=== PATIENT | female | born 1980 | race Caucasian/White ===

== ENCOUNTER 2020-11-26 23:05 | Emergency (ER) | payer SELFPAY ==
--- NOTE | 2020-11-26 23:44 | Event Note ---
ED Screening Note Date of service: 11/26/20 Time: 23:40 ED Screening Note: Patient is a 40-year-old female who presents with for as stated moira. Patient has history of bipolar disease has not had medications in 2 weeks. does not know the name of medications or the psychiatrist who prescribes. Patient denies SI or HI mother states patient seems to same songs all day. Patient is tolerating p.o. intake there is no fever or chills noted in triage no respiratory distress. Patient is well-groomed well-dressed however intermittently nonverbal versus repetitive phrases and singing. This initial assessment/diagnostic orders/clinical plan/treatment(s) is/are subject to change based on patients health status, clinical progression and re- assessment by fellow clinical providers in the ED. Further treatment and workup at subsequent clinical providers discretion. Patient/guardian urged not to elope from the ED as their condition may be serious if not clinically assessed and managed. Initial orders include: Psych consult, cbc, cmp, salicylate, tyelnol ,dilatin, depakote, uds, ua, hcg
[2020-11-26] MEDS ORDERED: ZIPRASIDONE MESYLATE 20 MG VIAL IM ONE (23:52)
--- NOTE | 2020-11-27 00:46 | Emergency Department Report ---
ED General Adult HPI - General Chief complaint: Psych Stated complaint: MARCELINO VELA Time Seen by Provider: 11/26/20 23:47 Source: patient Mode of arrival: Ambulatory Limitations: No Limitations - History of Present Illness Initial comments: Patient presents to the emergency department with her for psychiatric evaluation. Patient has a history of bipolar disease and has not taken her medicines in the last 3 to 4 months per her spouse. states the patient has not been sleeping at home and has been out for the least the last 1 to 2 days. He states the patient is in her manic state currently. On evaluation the patient is singing [employer] song in [place] and is very energetic. Due to the patient's joie she is not able to assist in history. -: Gradual Severity scale (0 -10): 0 Consistency: constant Improves with: none Worsens with: none Associated Symptoms: denies other symptoms Treatments Prior to Arrival: none - Related Data Allergies Allergy/AdvReac Type Severity Reaction Status Date / Time No Known Allergies Allergy Verified 02/03/19 01:23 ED Review of Systems ROS: Stated complaint: MARCELINO VELA Other details as noted in HPI Not able to completely assess due to the patient's joie Comment: Unobtainable due to pts medical conditions ED Past Medical Hx - Past Medical History Previous Medical History?: Yes Hx Psychiatric Treatment: Yes (Bipolar) - Surgical History Past Surgical History?: No - Social History Smoking Status: Never Smoker Substance Use Type: None ED Physical Exam - General Limitations: No Limitations, Language Barrier General appearance: other (Manic) - Head Head exam: Present: atraumatic, normocephalic - Eye Eye exam: Present: normal appearance, PERRL, EOMI Pupils: Present: normal accommodation - ENT ENT exam: Present: mucous membranes moist - Neck Neck exam: Present: normal inspection - Respiratory Respiratory exam: Present: normal lung sounds bilaterally, respiratory distress. Absent: wheezes, rales, rhonchi - Cardiovascular Cardiovascular Exam: Present: normal rhythm, tachycardia - GI/Abdominal GI/Abdominal exam: Present: soft, normal bowel sounds. Absent: distended, tenderness - Extremities Exam Extremities exam: Present: normal inspection - Back Exam Back exam: Present: normal inspection - Neurological Exam Neurological exam: Present: alert, CN II-XII intact. Absent: motor sensory deficit - Psychiatric Psychiatric exam: Present: anxious, manic - Skin Skin exam: Present: warm, dry, intact, normal color. Absent: rash ED Course Vital Signs 11/26/20 23:37 Temperature 97.6 F Pulse Rate 104 H Respiratory 18 Rate Blood Pressure 130/84 [Left] O2 Sat by Pulse 100 Oximetry ED Medical Decision Making - Lab Data Result diagrams: 11/27/20 00:01 Lab Results 11/27/20 11/27/20 11/27/20 Range/Units 00:01 00:01 00:01 Sodium 137 (137-145) mmol/L Potassium 3.4 L (3.6-5.0) mmol/L Chloride 102.5 (98-107) mmol/L Carbon Dioxide 22 (22-30) mmol/L Anion Gap 16 mmol/L BUN 12 (7-17) mg/dL Creatinine 0.7 (0.6-1.2) mg/dL Estimated GFR > 60 ml/min BUN/Creatinine Ratio 17 % Glucose 100 (65-100) mg/dL Calcium 9.4 (8.4-10.2) mg/dL Total Bilirubin 0.50 (0.1-1.2) mg/dL AST 16 (5-40) units/L ALT 19 (7-56) units/L Alkaline Phosphatase 64 (35-129) units/L Total Protein 7.5 (6.3-8.2) g/dL Albumin 4.8 (3.9-5) g/dL Albumin/Globulin Ratio 1.8 % Urine HCG, Qual (Negative) Acetaminophen 5.0 L (10.0-30.0) ug/mL Phenytoin 1.0 L (10.0-20.0) ug/mL Carbamazepine 2.0 L (4-12) ug/mL [place] 0.1 (0.0-1.2) mmol/L 11/27/20 Range/Units 00:29 Sodium (137-145) mmol/L Potassium (3.6-5.0) mmol/L Chloride (98-107) mmol/L Carbon Dioxide (22-30) mmol/L Anion Gap mmol/L BUN (7-17) mg/dL Creatinine (0.6-1.2) mg/dL Estimated GFR ml/min BUN/Creatinine Ratio % Glucose (65-100) mg/dL Calcium (8.4-10.2) mg/dL Total Bilirubin (0.1-1.2) mg/dL AST (5-40) units/L ALT (7-56) units/L Alkaline Phosphatase (35-129) units/L Total Protein (6.3-8.2) g/dL Albumin (3.9-5) g/dL Albumin/Globulin Ratio % Urine HCG, Qual Negative (Negative) Acetaminophen (10.0-30.0) ug/mL Phenytoin (10.0-20.0) ug/mL Carbamazepine (4-12) ug/mL [place] (0.0-1.2) mmol/L - Medical Decision Making 1013 applied Patient given Harpreet[place] Patient to be evaluated by mental health Pending placement Medically cleared Critical care attestation.: If time is entered above; I have spent that time in minutes in the direct care of this critically ill patient, excluding procedure time. ED Disposition Clinical Impression: Joie Disposition: [id number]/TX-[id number] PSY HOSP/PSY UNIT Is pt being admited?: No Does the pt Need Aspirin: No Condition: Stable Referrals: PRIMARY CARE, [Primary Care Provider] - 3-5 Days
[2020-11-27 01:05] LABS: Alanine Aminotransferase 19 units/L (7-56); Albumin 4.8 g/dL (3.9-5); Blood Urea Nitrogen 12 mg/dL (7-17); Calcium 9.4 mg/dL (8.4-10.2); Hemolysis Index 4
[2020-11-27 01:06] LABS: BUN/Creatinine Ratio 17
[2020-11-27 01:33] LABS: Bacteria,Urine 3+ /HPF (Negative); Mucus,Urine 1+ /HPF
[2020-11-27 01:40] LABS: Basophils # (Auto) 0.1 K/mm3 (0.0-0.1); Basophils % (Auto) 1.2 % (0.0-1.8); Eosinophils % (Auto) 0.3 % (0.0-4.3); Hematocrit 41.3 % (30.3-42.9); Hemoglobin 13.9 gm/dl (10.1-14.3); Lymphocytes # (Auto) 1.2 K/mm3 (1.2-5.4); Lymphocytes % (Auto) 10.9 % (13.4-35.0); Mean Corpuscular HGB Conc 34 % (30-34); Mean Corpuscular Volume 92 fl (79-97); Monocytes # (Auto) 1.1 K/mm3 (0.0-0.8); Monocytes % (Auto) 9.8 % (0.0-7.3); Platelet Count 301 K/mm3 (140-440); Red Blood Count 4.49 M/mm3 (3.65-5.03); Red Cell Distribution Width 13.6 % (13.2-15.2)
[2020-11-27 01:52] LABS: Bilirubin,Urine NEG (Negative); Blood,Urine NEG (Negative); Color,Urine Red (Yellow); Protein,Urine <15 mg/dL mg/dL (Negative); Urobilinogen,Urine < 2.0 mg/dL (<2.0)
[2020-11-27 01:53] LABS: HCG Qualitative,Urine Positive (Negative)
[2020-11-27 02:15] LABS: Amphetamine Screen,Urine PRESUMPTIVE NEGATIVE; Benzodiazepines Screen,Urine PRESUMPTIVE NEGATIVE; Cannabinoid Screen,Urine PRESUMPTIVE NEGATIVE; Cocaine Screen,Urine PRESUMPTIVE NEGATIVE; Methadone Screen,Urine PRESUMPTIVE NEGATIVE; Opiate Screen,Urine PRESUMPTIVE NEGATIVE
--- NOTE | 2020-11-27 10:17 | Consultation ---
History of Present Illness - Reason for Consult Consult date: 11/27/20 Reason for consult: hallucinations, agitation - History of Present Psychiatric Illness Per nurse note: "Patient presents to the emergency department with her for psychiatric evaluation. Patient has a history of bipolar disease and has not taken her medicines in the last 3 to 4 months per her spouse. states the patient has not been sleeping at home and has been out for the least the last 1 to 2 days. He states the patient is in her manic state currently. On evaluation the patient is singing gospel song in [place] and is very energetic. Due to the patient's moira she is not able to assist in history." During my interview with the patient she is bizarre and irritable. She is responding to internal stimuli. She is singing, laughing and talking out loud to herself. She snatches my notes and refused to give them back. Her who's at bedside got the notes back and calmed the patient down. The patient is [place] speaking. Her is translating. He says she has been off of her meds for about four months. He says she has not been sleeping and being very agitated. PAST PSYCHIATRIC HISTORY: Diagnoses: Bipolar Suicide attempts or Self-harm behavior: None reported Prior psychiatric hospitalizations: None reported Substance Abuse history: Denies Previous psychiatric medications tried: Respiratory Outpatient treatment: None report PAST MEDICAL HISTORY: cardiac arrhythmia, diabetes, gout, thyroid issues Family Psychiatric History: None reported or documented SOCIAL HISTORY Marital Status: Living Arrangements: with spouse Employment Status: yes Access to guns/weapons: Bows and arrows Education: High school History of Abuse: None reported Legal History: None reported REVIEW OF SYSTEMS Constitutional: Negative for weight loss ENT: Negative for stridor Respiratory: Negative for cough or hemoptysis All other systems reviewed and are negative MENTAL STATUS EXAMINATION General Appearance and Behavior: Age appropriate, good hygiene, wearing appropriate clothes, good eye contact, cooperative polite with questioning. Cooperation: Participating/engaged Psychomotor Behavior: unremarkable and within normal limits Mood: Good Affect and affective range: congruent with mood Thought Process: Fluent/Logical, Thought Content: Within reality, Speech: Normal volume, Regular rate and rhythm, Intellectual Functioning: Average Suicidal Ideation: Denies SI Homicidal Ideation: Denies HI Impulse Control: Unimpaired Insight and Judgment: Normal insight and judgment, Memory: Normal, Attention: Normal, Orientation: Alert, oriented, Assessment Bipolar Disorder Treatment Plan 1013 Zyprexa 5mg po daily Depakote DR 125mg po BID Trazodone 50m po qhs Sitter: Defer to primary Medical: Per primary Disposition: Recommend acute inpatient treatment Will follow Case discussed with Dr. Calderon Medications and Allergies Allergies Allergy/AdvReac Type Severity Reaction Status Date / Time No Known Allergies Allergy Verified 02/03/19 01:23 Mental Status Exam - Vital signs Last Vital Signs Temp 97.6 F 11/26/20 23:37 Pulse 104 H 11/26/20 23:37 Resp 16 11/27/20 00:43 BP 130/84 11/26/20 23:37 Pulse Ox 100 11/26/20 23:37 Results Result Diagrams: 11/27/20 00:01 11/27/20 00:01 Abnormal lab results 11/27/20 11/27/20 11/27/20 Range/Units 00:01 00:01 00:01 Lymph % (Auto) 10.9 L (13.4-35.0) % [place] % (Auto) 9.8 H (0.0-7.3) % [place] # (Auto) 1.1 H (0.0-0.8) K/mm3 Seg Neutrophils % 77.8 H (40.0-70.0) % Seg Neutrophils # 8.5 H (1.8-7.7) K/mm3 Potassium (3.6-5.0) mmol/L U Epithel Cells (Auto) (0-13.0) /HPF Urine HCG, Qual (Negative) Salicylates < 0.3 L (2.8-20.0) mg/dL Acetaminophen 5.0 L (10.0-30.0) ug/mL Phenytoin 1.0 L (10.0-20.0) ug/mL Valproic Acid < 2.8 L (50-100) ug/mL Carbamazepine 2.0 L (4-12) ug/mL 11/27/20 11/27/20 Range/Units 00:01 00:29 Lymph % (Auto) (13.4-35.0) % [place] % (Auto) (0.0-7.3) % [place] # (Auto) (0.0-0.8) K/mm3 Seg Neutrophils % (40.0-70.0) % Seg Neutrophils # (1.8-7.7) K/mm3 Potassium 3.4 L (3.6-5.0) mmol/L U Epithel Cells (Auto) 18.0 H (0-13.0) /HPF Urine HCG, Qual Positive A (Negative) Salicylates (2.8-20.0) mg/dL Acetaminophen (10.0-30.0) ug/mL Phenytoin (10.0-20.0) ug/mL Valproic Acid (50-100) ug/mL Carbamazepine (4-12) ug/mL All other labs normal.
[2020-11-27] MEDS ORDERED: ONDANSETRON 4 MG ODT TAB ONE (10:34)
[2020-11-27] MEDS ORDERED: LORazepam 2 MG/ML VIAL IM ONE (10:44)
[2020-11-27] MEDS ORDERED: HALOPERIDOL LACTATE 5 MG/1 ML INJ IM ONE ×2 (10:44→21:53)
[2020-11-27] MEDS ORDERED: LORazepam 2 MG/ML VIAL ONE (10:45)
[2020-11-27] MEDS ORDERED: HALOPERIDOL LACTATE 5 MG/1 ML INJ ONE (10:45)
[2020-11-27] MEDS: DIVALPROEX DR 125 MG TAB PO SCH ×2 (10:56→22:11)
[2020-11-27] MEDS ORDERED: POTASSIUM CHLORIDE ER 20 MEQ TAB PO ONE (16:41)
[2020-11-27] MEDS ORDERED: LORazepam 2 MG/ML VIAL IM STA (21:49)
[2020-11-27] MEDS ORDERED: diphenhydrAMINE 25 MG CAP PO ONE (21:52)
[2020-11-27] MEDS: traZODone 50 MG TAB PO SCH (22:11)
--- NOTE | 2020-11-28 08:36 | Progress Note ---
Subjective - Reason for Consult Consult date: 11/28/20 Reason for consult: moira - Chief Complaint Chief complaint: Per nurse note: "Pt became agitated and restless RN obtain a verbal phone read back order from MD. Rowell. Pt was given Ativan 1mg IM, Haldol 5mg IV and Benadryl 25mg PO. Pt is AO&4 no acute s/s of distress noted." The patient presented much better than yesterday. She still had some periods where she laughed out loud to herself and was looking around the room as if looking or seeing someone. She then starts asking for her and asking to use the phone. The patient denies SI/HI. REVIEW OF SYSTEMS Constitutional: Negative for weight loss ENT: Negative for stridor Respiratory: Negative for cough or hemoptysis All other systems reviewed and are negative MENTAL STATUS EXAMINATION General Appearance and Behavior: Age appropriate, good hygiene, wearing appropriate clothes, good eye contact, cooperative polite with questioning. Cooperation: Participating/engaged Psychomotor Behavior: unremarkable and within normal limits Mood: Good Affect and affective range: congruent with mood Thought Process: Fluent/Logical, Thought Content: Within reality, Speech: Normal volume, Regular rate and rhythm, Intellectual Functioning: Average Suicidal Ideation: Denies SI Homicidal Ideation: Denies HI Impulse Control: Unimpaired Insight and Judgment: Normal insight and judgment, Memory: Normal, Attention: Normal, Orientation: Alert, oriented, Assessment Bipolar Disorder Treatment Plan 1013 Increased Zyprexa 7.5mg po dailu Sitter: Defer to primary Medical: Per primary Disposition: Recommend acute inpatient treatment Will follow Case discussed with Dr. Calderon Mental Status Exam - Vital signs Last Vital Signs Temp 98.0 F 11/28/20 05:36 Pulse 86 11/28/20 05:36 Resp 17 11/28/20 05:36 BP 126/77 11/28/20 05:36 Pulse Ox 100 11/28/20 05:36
[2020-11-28] MEDS: DIVALPROEX DR 125 MG TAB PO SCH ×2 (10:26→22:25)
[2020-11-28 10:52] LABS: Mean Corpuscular HGB Conc 33 % (30-34); Mean Corpuscular Volume 92 fl (79-97); Platelet Count 281 K/mm3 (140-440); Red Blood Count 4.25 M/mm3 (3.65-5.03); Red Cell Distribution Width 13.8 % (13.2-15.2)
[2020-11-28] MEDS: traZODone 50 MG TAB PO SCH (22:25)
[2020-11-29 08:24] VITALS: BP 106/61
--- NOTE | 2020-11-29 10:23 | Progress Note ---
Subjective - Reason for Consult Consult date: 11/29/20 Reason for consult: bizarre behaivor - Chief Complaint Chief complaint: Per nurse sitter: The patient has been calm, cooperative and stating she wants to go home The patient is sitting on her bed awake. She is calm, cooperative and pleasant. She says "much better" when I enter the room. She is asking about going home. She says "" and motions for me to call him. Her was called at bedside. He translated for the patient. The patient denies SI/HI or hallucinations of any kind. The patient states she feels "good." The spouse was happy to know that the patient was coming home. REVIEW OF SYSTEMS Constitutional: Negative for weight loss ENT: Negative for stridor Respiratory: Negative for cough or hemoptysis All other systems reviewed and are negative MENTAL STATUS EXAMINATION General Appearance and Behavior: Age appropriate, good hygiene, wearing appropriate clothes, good eye contact, cooperative polite with questioning. Cooperation: Participating/engaged Psychomotor Behavior: unremarkable and within normal limits Mood: Good Affect and affective range: congruent with mood Thought Process: Fluent/Logical, Thought Content: Within reality, Speech: Normal volume, Regular rate and rhythm, Intellectual Functioning: Average Suicidal Ideation: Denies SI Homicidal Ideation: Denies HI Hallucinations: Denies Delusions: None elicited Impulse Control: Unimpaired Insight and Judgment: Normal insight and judgment, Memory: Normal, Attention: Normal, Orientation: Alert, oriented, Assessment Bipolar Disorder Treatment Plan d/c 1013 Scripts: Trazodone 50mg po qhs Depakote DR 125mg po BID Zyprexa 7.5mg daily Sitter: Defer to primary Medical: Per primary Disposition: Do not recommend acute inpatient treatment. The patient and the spouse understand that if any SI/HI or any feelings of endangerment are to arise they should seek immediate assistance including but not limited to 911/ER, crisis hotline. Will sign off The patient to follow up with outpatient psych in 7 to 14 days upon discharge, and comply with all treatment regimens The assess to give outpatient resources Case discussed with Dr. Calderon Mental Status Exam - Vital signs Last Vital Signs Temp 98.0 F 11/29/20 08:23 Pulse 83 11/29/20 08:23 Resp 20 11/29/20 10:02 BP 106/61 11/29/20 08:23 Pulse Ox 100 11/29/20 10:02
[2020-11-29] MEDS: DIVALPROEX DR 125 MG TAB PO SCH (10:52)
== END 2020-11-29 14:43 | disposition home or self-care (01) ==
LOC: ED 23:05
DX: F30.9 Manic episode, unspecified (principal)
CPT/HCPCS: 36415; 96372; 99284; J1630; J2060; J3486; 84132; 85027; Q0162

== ENCOUNTER 2022-04-05 01:20 | Emergency (ER) | payer SELFPAY ==
[2022-04-05 01:58] LABS: Basophils % (Auto) 0.4 % (0.0-1.8); Eosinophils # (Auto) 0.1 K/mm3 (0.0-0.4); Eosinophils % (Auto) 0.9 % (0.0-4.3); Hematocrit 35.5 % (30.3-42.9); Hemoglobin 11.8 gm/dl (10.1-14.3); Lymphocytes # (Auto) 1.2 K/mm3 (1.2-5.4); Lymphocytes % (Auto) 10.6 % (13.4-35.0); Mean Corpuscular HGB Conc 33 % (30-34); Mean Corpuscular Volume 90 fl (79-97); Monocytes # (Auto) 1.2 K/mm3 (0.0-0.8); Monocytes % (Auto) 10.5 % (0.0-7.3); Platelet Count 279 K/mm3 (140-440); Red Blood Count 3.97 M/mm3 (3.65-5.03)
[2022-04-05 02:12] LABS: Blood Urea Nitrogen 13 mg/dL (7-17); Hemolysis Index 6
[2022-04-05 02:18] LABS: BUN/Creatinine Ratio 19
[2022-04-05] MEDS ORDERED: ZIPRASIDONE MESYLATE 20 MG VIAL IM ONE ×2 (02:48→10:49)
--- NOTE | 2022-04-05 02:49 | Emergency Department Report ---
ED Psych HPI - General Chief Complaint: Psych Stated Complaint: HEALTH EVAL Time Seen by Provider: 04/05/22 02:47 Source: patient, family Mode of arrival: Ambulatory - History of Present Illness Initial Comments: 42-year-old female with a history of anxiety and bipolar who presents with acute psychosis with anxiety. Pt was brought to ED by her . Pt keep repeating herself that [facility] sent her to redeem some people. She also mentioned that she has not slept in couple of days. "I just wanted to get some sleep". Pt however denies any suicide or homicidal ideation. - Related Data Previous Rx's Medication Instructions Recorded Last Taken Type Divalproex Dr [DepaKOTE DR] 125 mg PO BID #60 tablet 11/29/20 Unknown Rx OLANzapine [ZyPREXA] 7.5 mg PO DAILY #30 tablet 11/29/20 Unknown Rx traZODone [Desyrel] 50 mg PO QHS #30 tab 11/29/20 Unknown Rx Allergies Allergy/AdvReac Type Severity Reaction Status Date / Time No Known Allergies Allergy Verified 02/03/19 01:23 ED Review of Systems ROS: Stated complaint: HEALTH EVAL Other details as noted in HPI Comment: All other systems reviewed and negative Psychiatric: anxiety, other (agitation ) ED Past Medical Hx - Past Medical History Hx Psychiatric Treatment: Yes (Bipolar) - Social History Smoking Status: Never Smoker Substance Use Type: None - Medications Home Medications: Home Medications Medication Instructions Recorded Confirmed Last Taken Type Divalproex Dr [DepaKOTE DR] 125 mg PO BID #60 tablet 11/29/20 Unknown Rx OLANzapine [ZyPREXA] 7.5 mg PO DAILY #30 tablet 11/29/20 Unknown Rx traZODone [Desyrel] 50 mg PO QHS #30 tab 11/29/20 Unknown Rx ED Physical Exam - General Limitations: Language Barrier General appearance: alert, anxious - Head Head exam: Present: normal inspection - Eye Eye exam: Present: normal appearance Pupils: Present: normal accommodation - ENT ENT exam: Present: normal exam, normal orophraynx, mucous membranes moist - Neck Neck exam: Present: normal inspection, full ROM. Absent: tenderness - Respiratory Respiratory exam: Present: normal lung sounds bilaterally. Absent: respiratory distress, accessory muscle use - Cardiovascular Cardiovascular Exam: Present: regular rate, normal rhythm, normal heart sounds - GI/Abdominal GI/Abdominal exam: Present: soft, normal bowel sounds. Absent: distended, tend erness - Speculum exam: Present: other (currently having her menses) - Extremities Exam Extremities exam: Present: normal inspection - Back Exam Back exam: Present: normal inspection - Neurological Exam Neurological exam: Present: alert, oriented X3 - Psychiatric Psychiatric exam: Present: agitated, anxious, other (tangential ). Absent: homicidal ideation, suicidal ideation ED Course Vital Signs 04/05/22 01:24 Temperature 98.6 F Pulse Rate 78 Respiratory 18 Rate Blood Pressure 111/75 O2 Sat by Pulse 99 Oximetry - Reevaluation(s) Reevaluation #1: 04/05/22 05:58 Patient observed shortly after having Geodon to be resting comfortably in bed Reevaluation #2: 04/05/22 05:58 Pt is awaiting mental health evaluation ED Medical Decision Making - Lab Data Result diagrams: 04/05/22 01:37 04/05/22 01:37 - Medical Decision Making here with agitation and noted with be tangential -- this patient is likely expressing manic episode vs acute psychosis-- will go ahead and order routine psych labs including UDS, and thyroid panel Given Geodon 20 mg IM x 1 to help this patient calm down-- Critical care attestation.: If time is entered above; I have spent that time in minutes in the direct care of this critically ill patient, excluding procedure time. ED Disposition Clinical Impression: Bipolar disease, manic Qualifiers: Current episode severity: unspecified Qualified Code(s): F31.10 - Bipolar disorder, current episode manic without psychotic features, unspecified Disposition: 30 STILL A PATIENT Is pt being admited?: No Does the pt Need Aspirin: No Condition: Stable
[2022-04-05 04:23] LABS: Alanine Aminotransferase 16 units/L (7-56)
[2022-04-05 04:33] LABS: Bilirubin,Direct < 0.2 mg/dL (0-0.2)
--- NOTE | 2022-04-05 14:08 | Consultation ---
History of Present Illness - Reason for Consult Consult date: 04/05/22 Reason for consult: psychosis - History of Present Psychiatric Illness HPI: 42-year-old female with a history of anxiety and bipolar who presents with acute psychosis with anxiety. Pt was brought to ED by her . Pt keep repeating herself that [facility] sent her to redeem some people. She also mentioned that she has not slept in couple of days. "I just wanted to get some sleep". Pt however denies any suicide or homicidal ideation. The patient was seen today. She is known to me from a previous visit, in which I got her history from. She is Syriac speaking, and an site interpreter was utilized. It is difficult to engage the patient in the evaluation. She drifts off to sleep and has to be arouses several times. The site interpreter stated that she could hardly hear the patient. The patient did say her brought her because she had not slept. She also says she was agitated and delusional. I ask the patient was she hearing voices, she says "sometimes." She denies SI/HI. PAST PSYCHIATRIC HISTORY: Diagnoses: Bipolar Suicide attempts or Self-harm behavior: None reported Prior psychiatric hospitalizations: None reported Substance Abuse history: Denies Previous psychiatric medications tried: Respiratory Outpatient treatment: None report PAST MEDICAL HISTORY: cardiac arrhythmia, diabetes, gout, thyroid issues Family Psychiatric History: None reported or documented SOCIAL HISTORY Marital Status: Living Arrangements: with spouse Employment Status: yes Access to guns/weapons: Bows and arrows Education: High school History of Abuse: None reported Legal History: None reported REVIEW OF SYSTEMS Constitutional: Negative for weight loss ENT: Negative for stridor Respiratory: Negative for cough or hemoptysis All other systems reviewed and are negative MENTAL STATUS EXAMINATION could not assess Assessment Bipolar Disorder Treatment Plan 1013 Zyprexa 5mg po daily Depakote DR 125mg po BID Trazodone 50m po qhs Sitter: Defer to primary Medical: Per primary Disposition: Recommend acute inpatient treatment Will follow. Thanks Case discussed with Dr. Calderon Medications and Allergies Allergies Allergy/AdvReac Type Severity Reaction Status Date / Time No Known Allergies Allergy Verified 02/03/19 01:23 Home Medications Medication Instructions Recorded Confirmed Last Taken Type Divalproex Dr [Bryce MARTIN] 125 mg PO BID #60 tablet 11/29/20 Unknown Rx OLANzapine [ZyPREXA] 7.5 mg PO DAILY #30 tablet 11/29/20 Unknown Rx traZODone [Desyrel] 50 mg PO QHS #30 tab 11/29/20 Unknown Rx Mental Status Exam - Vital signs Last Vital Signs Temp 98.6 F 04/05/22 01:24 Pulse 89 04/05/22 07:12 Resp 18 04/05/22 01:24 BP 118/68 04/05/22 07:12 Pulse Ox 100 04/05/22 07:10 Results Result Diagrams: 04/05/22 01:37 04/05/22 01:37 Abnormal lab results 04/05/22 04/05/22 04/05/22 Range/Units 01:37 01:37 01:37 WBC (4.5-11.0) K/mm3 Lymph % (Auto) (13.4-35.0) % [place] % (Auto) (0.0-7.3) % [place] # (Auto) (0.0-0.8) K/mm3 Seg Neutrophils % (40.0-70.0) % Seg Neutrophils # (1.8-7.7) K/mm3 Carbon Dioxide 21 L (22-30) mmol/L Glucose 106 H (65-100) mg/dL Salicylates < 0.3 L (2.8-20.0) mg/dL Acetaminophen 5.0 L (10.0-30.0) ug/mL 04/05/22 Range/Units 01:37 WBC 11.3 H (4.5-11.0) K/mm3 Lymph % (Auto) 10.6 L (13.4-35.0) % [place] % (Auto) 10.5 H (0.0-7.3) % [place] # (Auto) 1.2 H (0.0-0.8) K/mm3 Seg Neutrophils % 77.6 H (40.0-70.0) % Seg Neutrophils # 8.8 H (1.8-7.7) K/mm3 Carbon Dioxide (22-30) mmol/L Glucose (65-100) mg/dL Salicylates (2.8-20.0) mg/dL Acetaminophen (10.0-30.0) ug/mL All other labs normal.
[2022-04-05] MEDS: DIVALPROEX DR 125 MG TAB PO SCH ×2 (15:10→21:50)
[2022-04-05] MEDS ORDERED: traZODone 50 MG TAB PO SCH (22:00)
[2022-04-06 08:10] LABS: Bilirubin,Urine NEG (Negative); Blood,Urine SM (Negative); Color,Urine Yellow (Yellow)
[2022-04-06 08:19] LABS: Amphetamine Screen,Urine Negative; Benzodiazepines Screen,Urine Negative; Cannabinoid Screen,Urine Negative; Cocaine Screen,Urine Negative; Methadone Screen,Urine Negative; Opiate Screen,Urine Negative
[2022-04-06 08:22] LABS: Mucus,Urine 3+ /HPF
[2022-04-06] MEDS: DIVALPROEX DR 125 MG TAB PO SCH (10:05)
--- NOTE | 2022-04-06 12:05 | Emergency Department Report ---
Blank Doc - Documentation Documentation: S: No events reported overnight O: Vital Signs - 8 hr 04/06/22 12:19 Temperature 97.9 F Pulse Rate 75 Respiratory 18 Rate Blood Pressure 103/65 [Left] O2 Sat by Pulse 97 Oximetry A: Bipolar disorder P: DC'd by psych
--- NOTE | 2022-04-06 12:14 | Progress Note ---
Subjective - Reason for Consult Consult date: 04/06/22 Reason for consult: bipolar hx - Chief Complaint Chief complaint: The patient was seen today. She is [place] speaking, an parts interpreter was used. The patient is lucid today, and talkative. She is calm and cooperative. She says she feels much better and is ready to go home. She denies SI/HI or hallucinations. She says "I was praying. That is a part of who I am. I was never suicidal." The patient says "I feel well. Can I call my ?" REVIEW OF SYSTEMS Constitutional: Negative for weight loss ENT: Negative for stridor Respiratory: Negative for cough or hemoptysis All other systems reviewed and are negative MENTAL STATUS EXAMINATION General Appearance: Dressed appropriately Behavior: anxious, depressed Mood: well Affect and affective range: congruent with stated mood Thought Process: goal directed Speech: normal rate and volume Thought Content: Suicidal Ideation: Denies Homicidal Ideation: Denies HI Hallucinations: Denies Delusions: none elicited Insight and Judgment: Limited Memory/Cognition: Limited Attention: Normal Assessment Bipolar Disorder Treatment Plan d/c 1013 Zyprexa 7.5mg po daily Depakote DR 125mg po BID Trazodone 50m po qhs Sitter: Defer to primary Medical: Per primary Disposition: Do not recommend acute inpatient treatment. The patient understands that if SI/HI arise she is to seek immediate assistance. Mail Handler to further discuss plan and give all necessary resources Will sign off. Thanks Case discussed with Dr. Calderon Mental Status Exam - Vital signs Last Vital Signs Temp 97.8 F 04/05/22 15:34 Pulse 74 04/05/22 15:34 Resp 18 04/05/22 01:24 BP 106/68 04/05/22 15:34 Pulse Ox 98 04/05/22 15:34
[2022-04-06 12:20] VITALS: BP 103/65
== END 2022-04-06 14:11 | disposition home or self-care (01) ==
LOC: EEVIPCON 01:20 → ED 01:20
DX: Z79.899 Other long term (current) drug therapy (principal); Z20.822 Contact with and (suspected) exposure to COVID-19
CPT/HCPCS: 36415; 80048; 80076; 80307; 81001; 85025; 96372; 99284; J3486; U0003; 80320; G0480